=== PATIENT | male | born 1990 | race Caucasian/White ===

== ENCOUNTER 2020-10-20 21:38 | Inpatient (IN) | payer OTHER ==
[~2020-10-20] VITALS: Ht 172.7 cm; Wt 95.3 kg
[2020-10-20 21:43] VITALS: Ht 172.7 cm; Wt 95.3 kg
[2020-10-20 23:27] LABS: CALCIUM 9.3 mg/dL (8.5-10.1); CARBON DIOXIDE 26.4 mmol/L (21-32); CHLORIDE SERUM 100 mmol/L (98-107); GFR1 > 60 mL/min; GLUCOSE SERUM 254 mg/dL (74-106); POTASSIUM SERUM 3.6 mmol/L (3.5-5.1); SODIUM SERUM 140 mmol/L (136-145)
[2020-10-20 23:30] LABS: BASOPHIL % 0.4 % (0-2); PLATELET COUNT 191 x10^3mcL (130-400); RED CELL DISTRIBUTION WIDTH 12.8 % (11.5-14.5)
[2020-10-20 23:31] LABS: ALBUMIN 4.4 g/dL (3.4-5.0); ALKALINE PHOSPHATASE 124 U/L (46-116); ALT/SGPT 108 U/L (16-63); AST/SGOT 45 U/L (15-37); BILIRUBIN TOTAL 0.32 mg/dL (0.20-1.00); TOTAL PROTEIN, SERUM 7.9 g/dL (6.4-8.2)
[2020-10-20 23:39] LABS: LIPASE 936 IU/L (73-393)
[2020-10-21] MEDS ORDERED: FORTAMET1000 MG PO (00:20)
[2020-10-21 02:57] VITALS: BP 146/96
[2020-10-21 05:35] VITALS: BP 136/85
[2020-10-21 08:32] VITALS: BP 135/98
[2020-10-21 12:29] VITALS: BP 125/76
[2020-10-21 16:46] VITALS: BP 141/86
[2020-10-21 21:16] VITALS: BP 129/77
[2020-10-22 06:10] VITALS: BP 122/77
[2020-10-22 07:46] LABS: ALKALINE PHOSPHATASE 85 U/L (46-116); BILIRUBIN TOTAL 0.97 mg/dL (0.20-1.00); CALCIUM 7.3 mg/dL (8.5-10.1); CARBON DIOXIDE 24.8 mmol/L (21-32); CHLORIDE SERUM 98 mmol/L (98-107); CREATININE SERUM 0.8 mg/dL (0.7-1.3); GFR1 > 60 mL/min; GLUCOSE SERUM 237 mg/dL (74-106); LIPASE 1062 IU/L (73-393); MAGNESIUM 2.2 mg/dL (1.8-2.4); POTASSIUM SERUM 3.5 mmol/L (3.5-5.1); SODIUM SERUM 133 mmol/L (136-145)
[2020-10-22 08:06] LABS: ALBUMIN 3.2 g/dL (3.4-5.0); CHOLESTEROL/HDL RATIO 11.4; HDL CHOLESTEROL 29 mg/dL (40-60)
[2020-10-22 08:07] LABS: CHOLESTEROL 330 mg/dL (<200)
[2020-10-22 08:08] LABS: TRIGLYCERIDES 2646 mg/dL (<150)
[2020-10-22 08:36] LABS: ALT/SGPT 66 U/L (16-63); AST/SGOT 38 U/L (15-37)
[2020-10-22 09:04] LABS: RED CELL DISTRIBUTION WIDTH 13.6 % (11.5-14.5)
[2020-10-22 09:09] LABS: PLATELET COUNT 225 x10^3mcL (130-400)
[2020-10-22 09:20] VITALS: BP 128/68
[2020-10-22 11:29] VITALS: BP 145/84
[2020-10-22 13:26] LABS: SEGMENTED NEUTROPHILS 89 % (37-75)
[2020-10-22 13:27] LABS: BAND NEUTROPHIL 2 % (0-10); MONOCYTE 5 % (0-7); PLATELET MORPHOLOGY LARGE PLATELET SEEN; rbc morphology (normal/abnorm) NORMAL (NORMAL)
[2020-10-22 16:20] VITALS: BP 124/70
[2020-10-22 20:44] VITALS: BP 142/83
[2020-10-23 05:39] VITALS: BP 143/80
[2020-10-23 07:35] LABS: ALKALINE PHOSPHATASE 75 U/L (46-116); BILIRUBIN TOTAL 1.2 mg/dL (0.20-1.00); CALCIUM 8.2 mg/dL (8.5-10.1); CARBON DIOXIDE 23.3 mmol/L (21-32); CHLORIDE SERUM 95 mmol/L (98-107); CREATININE SERUM 0.9 mg/dL (0.7-1.3); GFR1 > 60 mL/min; GLUCOSE SERUM 167 mg/dL (74-106); LIPASE 385 IU/L (73-393); MAGNESIUM 2.1 mg/dL (1.8-2.4); POTASSIUM SERUM 3.4 mmol/L (3.5-5.1); SODIUM SERUM 131 mmol/L (136-145); TOTAL PROTEIN, SERUM 7.3 g/dL (6.4-8.2)
[2020-10-23 07:49] LABS: PLATELET COUNT 162 x10^3mcL (130-400); RED CELL DISTRIBUTION WIDTH 13.6 % (11.5-14.5)
[2020-10-23 08:14] VITALS: BP 129/85
[2020-10-23 09:35] LABS: ALT/SGPT 46 U/L (16-63); AST/SGOT 34 U/L (15-37)
[2020-10-23 12:16] VITALS: BP 138/83
[2020-10-23 13:40] LABS: BAND NEUTROPHIL 8 % (0-10); MONOCYTE 6 % (0-7); SEGMENTED NEUTROPHILS 75 % (37-75)
[2020-10-23 13:41] LABS: ATYPICAL LYMPH 1 %
[2020-10-23 13:42] LABS: PLATELET MORPHOLOGY LARGE PLATELET SEEN; rbc morphology (normal/abnorm) NORMAL (NORMAL)
[2020-10-23 16:55] VITALS: BP 141/76
[2020-10-23 21:03] VITALS: BP 145/88
[2020-10-24 05:38] VITALS: BP 118/67
[2020-10-24 07:46] LABS: ALKALINE PHOSPHATASE 60 U/L (46-116); ALT/SGPT 40 U/L (16-63); AST/SGOT 27 U/L (15-37); BILIRUBIN TOTAL 0.98 mg/dL (0.20-1.00); CALCIUM 8.3 mg/dL (8.5-10.1); CARBON DIOXIDE 24.3 mmol/L (21-32); CHLORIDE SERUM 96 mmol/L (98-107); CREATININE SERUM 0.9 mg/dL (0.7-1.3); GFR1 > 60 mL/min; GLUCOSE SERUM 165 mg/dL (74-106); LIPASE 419 IU/L (73-393); MAGNESIUM 2.1 mg/dL (1.8-2.4); POTASSIUM SERUM 3.2 mmol/L (3.5-5.1); SODIUM SERUM 130 mmol/L (136-145)
[2020-10-24 07:50] LABS: ALBUMIN 2.4 g/dL (3.4-5.0); CHOLESTEROL 298 mg/dL (<200); CHOLESTEROL/HDL RATIO 15.7; HDL CHOLESTEROL 19 mg/dL (40-60); TRIGLYCERIDES 696 mg/dL (<150)
[2020-10-24 08:22] VITALS: BP 135/70
[2020-10-24 08:37] LABS: BASOPHIL % 0.3 % (0-2); RED CELL DISTRIBUTION WIDTH 13.6 % (11.5-14.5)
[2020-10-24 08:41] LABS: PLATELET COUNT 112 x10^3mcL (130-400)
[2020-10-24 12:19] VITALS: BP 130/74
[2020-10-24] MEDS ORDERED: FENOFIBRATE145 M1 PO (14:01)
[2020-10-24] MEDS ORDERED: ATORVASTATIN CA40 M1 PO (14:01)
[2020-10-24] MEDS ORDERED: ACETAMINOPHEN-H1 TA1 PO (14:02)
[2020-10-24 15:14] VITALS: BP 130/74
[2020-10-24] MEDS ORDERED: LIPITOR40 MG PO (16:08)
[2020-10-24] MEDS ORDERED: FENOFIBRATE150 MG PO (16:08)
== END 2020-10-24 17:05 | disposition home or self-care (01) | DRG 282 ==
LOC: ED 21:38 → MU 10-21 01:21
PROVIDERS: Emergency Medicine; ADMIT Hospitalist; ATTEND Hospitalist
DX: K85.90 Acute pancreatitis without necrosis or infection, unspecified (principal); E11.65 Type 2 diabetes mellitus with hyperglycemia; K76.0 Fatty (change of) liver, not elsewhere classified; E11.9 Type 2 diabetes mellitus without complications; I10 Essential (primary) hypertension; J45.909 Unspecified asthma, uncomplicated; F90.9 Attention-deficit hyperactivity disorder, unspecified type; Z86.73 Personal history of transient ischemic attack (TIA), and cerebral infarction without residual deficits; N20.0 Calculus of kidney; E78.5 Hyperlipidemia, unspecified; F17.210 Nicotine dependence, cigarettes, uncomplicated; E66.9 Obesity, unspecified; Z68.30 Body mass index [BMI] 30.0-30.9, adult; E78.1 Pure hyperglyceridemia; Z79.84 Long term (current) use of oral hypoglycemic drugs; Z20.828 Contact with and (suspected) exposure to other viral communicable diseases
CPT/HCPCS: 82962; C9113; G0378; J1650; J1815; J2270; J2405; J7030; J7050; Q9967